=== PATIENT | male | born 1955 | race American Indian/Alaskan Native ===

== ENCOUNTER 2017-01-01 15:34 | Outpatient (CLI) | payer OTHER ==
--- NOTE | 2017-01-01 16:19 | XRay Report ---
CHEST TWO VIEWS: 01/01/17 15:34:00 CLINICAL: Hypertension. COMPARISON: None FINDINGS: Normal heart and pulmonary vasculature. The lungs are normally expanded and clear. The peripheral lung zones are hyperlucent.Degenerative change in the spine. IMPRESSION: Mild COPD and otherwise negative.
== END 2017-01-01 15:35 | disposition home or self-care (01) ==
LOC: XRAY 15:34
PROVIDERS: ATTEND Internal Medicine
DX: Z02.71 Encounter for disability determination (principal); I10 Essential (primary) hypertension; J44.9 Chronic obstructive pulmonary disease, unspecified
CPT/HCPCS: 71020

== ENCOUNTER 2017-02-10 09:14 | Outpatient (CLI) | payer OTHER ==
[2017-02-10] MEDS ORDERED: PROVENTIL IH ONE (09:34)
[2017-02-10] MEDS ORDERED: MORPHINE ONE (20:52)
== END 2017-02-10 09:15 | disposition home or self-care (01) ==
LOC: PF 09:14
PROVIDERS: ATTEND Internal Medicine
DX: I10 Essential (primary) hypertension (principal); R06.02 Shortness of breath; K63.9 Disease of intestine, unspecified
CPT/HCPCS: 94060; 94640; J2270

== ENCOUNTER 2017-03-05 09:03 | Outpatient (CLI) | payer OTHER ==
--- NOTE | 2017-03-05 11:21 | XRay Report ---
BILATERAL KNEES, 2 VIEWS History: Bilateral knee pain. Findings: Normal bone mineralization. No acute osseous findings or joint pathology is identified. Mild vascular calcifications are noted. Impression: Unremarkable bilateral knees.
--- NOTE | 2017-03-05 11:22 | XRay Report ---
LUMBOSACRAL SPINE, 3 VIEWS: History: Back pain Findings: The vertebral bodies, disk spaces and posterior elements are intact. No compression deformity or malalignment. Mild multilevel degenerative disc disease and facet arthropathy are noted. The SI joints are symmetric and unremarkable. Impression: Mild multilevel lumbar spondylosis. No acute process.
== END 2017-03-05 09:04 | disposition home or self-care (01) ==
LOC: XRAY 09:03
PROVIDERS: ATTEND Internal Medicine
DX: M51.37 Other intervertebral disc degeneration, lumbosacral region (principal); M12.88 Other specific arthropathies, not elsewhere classified, other specified site; M47.896 Other spondylosis, lumbar region; M25.862 Other specified joint disorders, left knee; M25.861 Other specified joint disorders, right knee; I10 Essential (primary) hypertension; K63.9 Disease of intestine, unspecified; R06.02 Shortness of breath
CPT/HCPCS: 72100

== ENCOUNTER 2019-01-18 10:04 | Emergency (ER) | payer OTHER ==
[2019-01-18 10:33] VITALS: BP 176/107
[2019-01-18] MEDS ORDERED: ZITHROMAX PO ONE (12:32)
[2019-01-18] MEDS ORDERED: FLAGYL PO ONE (12:32)
[2019-01-18] MEDS ORDERED: ZOFRAN ODT PO ONE (12:32)
[2019-01-18] MEDS ORDERED: XYLOCAINE 1% MPF 5 mL INFILTRATI ONE (12:32)
[2019-01-18] MEDS ORDERED: ROCEPHIN IM ONE (12:32)
--- NOTE | 2019-01-18 12:32 | Emergency Department Report ---
ED Male HPI - General Chief complaint: Urogenital-Male Stated complaint: STD CHECK/DRIP Time Seen by Provider: 01/18/19 12:30 Source: patient Mode of arrival: Ambulatory Limitations: No Limitations - History of Present Illness Initial comments: Mr. Kyle presents with penile discharge for one day. No fever. No pain. Gradual onset. MD Complaint: penile discharge -: Gradual, days(s) (1) Severity: mild Consistency: constant Improves with: none Worsens with: none denies other symptoms - Related Data Previous Rx's Medication Instructions Recorded Last Taken Type Metoclopramide [Reglan] 10 mg PO QID PRN #15 tab 11/13/15 Unknown Rx levoFLOXacin [Levaquin] 750 mg PO QDAY #6 tablet 11/13/15 Unknown Rx oxyCODONE [Roxicodone] 5 mg PO Q6HR PRN #10 tablet 11/13/15 Unknown Rx Allergies Allergy/AdvReac Type Severity Reaction Status Date / Time aspirin AdvReac Intermediate Nausea Verified 03/16/13 08:26 ED Review of Systems ROS: Stated complaint: STD CHECK/DRIP Other details as noted in HPI Constitutional: denies: fever, malaise Gastrointestinal: denies: abdominal pain, nausea, vomiting Genitourinary: discharge. denies: urgency, dysuria, frequency ED Past Medical Hx - Past Medical History Hx Hypertension: Yes - Surgical History Additional Surgical History: colon resection - Social History Smoking Status: Never Smoker Substance Use Type: None - Medications Home Medications: Home Medications Medication Instructions Recorded Confirmed Last Taken Type Metoclopramide [Reglan] 10 mg PO QID PRN #15 tab 11/13/15 Unknown Rx levoFLOXacin [Levaquin] 750 mg PO QDAY #6 tablet 11/13/15 Unknown Rx oxyCODONE [Roxicodone] 5 mg PO Q6HR PRN #10 tablet 11/13/15 Unknown Rx ED Physical Exam - General Limitations: No Limitations General appearance: alert, in no apparent distress - Head Head exam: Present: atraumatic, normocephalic - Eye Eye exam: Present: normal appearance - ENT ENT exam: Present: mucous membranes moist - Neck Neck exam: Present: normal inspection, full ROM - Neurological Exam Neurological exam: Present: alert, oriented X3 - Psychiatric Psychiatric exam: Present: normal affect, normal mood - Skin Skin exam: Present: warm, dry, intact, normal color ED Course Vital Signs 01/18/19 10:31 Temperature 97.6 F Pulse Rate 69 Respiratory 20 Rate Blood Pressure 176/107 O2 Sat by Pulse 100 Oximetry ED Medical Decision Making - Medical Decision Making Mr. Kyle presents with symptoms of urethritis. Treated for chlamydia and gonorrhea Trichomonas with ceftriaxone and azithromycin and metronidazole. Critical care attestation.: If time is entered above; I have spent that time in minutes in the direct care of this critically ill patient, excluding procedure time. ED Disposition Clinical Impression: Urethritis Disposition: DC-01 TO HOME OR SELFCARE Is pt being admited?: No Does the pt Need Aspirin: No Condition: Stable Instructions: Nonspecific Urethritis in Men (ED) Referrals: CATHERINE RAINEY MD [Primary Care Provider] - 3-5 Days Forms: STI Treatment and Prevention
== END 2019-01-18 12:56 | disposition home or self-care (01) ==
LOC: ED 10:04
DX: N34.2 Other urethritis (principal); I10 Essential (primary) hypertension; Z98.890 Other specified postprocedural states; Z79.899 Other long term (current) drug therapy; Z88.6 Allergy status to analgesic agent
CPT/HCPCS: 96372; 99282; J0696; Q0162

== ENCOUNTER 2019-01-21 11:02 | Emergency (ER) | payer BC ==
--- NOTE | 2019-01-21 11:31 | Event Note ---
ED Screening Note ED Screening Note: pt states last he is having rectal bleeding generalized abd discomfort that began last night hx colon CA, had surgical resection in 2006 has not had a colonoscopy since 2007 +nausea no vomiting This initial assessment/diagnostic orders/clinical plan/treatment(s) is/are subject to change based on patients health status, clinical progression and re- assessment by fellow clinical providers in the ED. Further treatment and workup at subsequent clinical providers discretion. Patient/guardian urged not to elope from the ED as their condition may be serious if not clinically assessed and managed. Initial orders include: labs
[2019-01-21 12:05] LABS: Basophils # (Auto) 0.1 K/mm3 (0.0-0.1); Basophils % (Auto) 1.4 % (0.0-1.8); Eosinophils # (Auto) 0.2 K/mm3 (0.0-0.4); Eosinophils % (Auto) 4.4 % (0.0-4.3); Hematocrit 42.6 % (35.5-45.6); Hemoglobin 14.9 gm/dl (11.8-15.2); Lymphocytes # (Auto) 1.4 K/mm3 (1.2-5.4); Mean Corpuscular HGB Conc 35 % (32-34); Mean Corpuscular Volume 86 fl (84-94); Monocytes # (Auto) 0.4 K/mm3 (0.0-0.8); Monocytes % (Auto) 8.9 % (0.0-7.3); Platelet Count 218 K/mm3 (140-440); Red Blood Count 4.98 M/mm3 (3.65-5.03); Red Cell Distribution Width 14.4 % (13.2-15.2)
[2019-01-21 12:20] LABS: Alanine Aminotransferase 14 units/L (7-56); Albumin 3.7 g/dL (3.9-5); BUN/Creatinine Ratio 18; Blood Urea Nitrogen 18 mg/dL (9-20); Calcium 9.1 mg/dL (8.4-10.2); Hemolysis Index 7; INR 1.12 (0.87-1.13)
[2019-01-21 12:21] LABS: Partial Thromboplastin Time 22.6 Sec. (24.2-36.6)
--- NOTE | 2019-01-21 12:28 | Emergency Department Report ---
ED GI Bleed HPI - General Chief complaint: GI Bleed Stated complaint: BLOOD IN STOOL/LIGHTHEADED Time Seen by Provider: 01/21/19 11:29 Source: patient Mode of arrival: Ambulatory Limitations: No Limitations - History of Present Illness Initial comments: Patient is 63 years old male with history of colon cancer in 2006 status post resection at [facility]. Patient presented to the ER complaining of rectal bleeding, bloody streaked stools started last night. Patient stated that he had 2 episodes so far. Patient is also complaining of diffuse abdominal pain, crampy in nature. Patient denied any nausea or vomiting. Patient stated that he lost approximately 10 pounds since last week. Patient did not have any follow-up with his GI doctor for colonoscopy except one time in 2007. MD complaint: blood streaked stool -: Last night Location: diffuse Radiation: none Quality: cramping Context: history of GI bleed - Related Data Previous Rx's Medication Instructions Recorded Last Taken Type Metoclopramide [Reglan] 10 mg PO QID PRN #15 tab 11/13/15 Unknown Rx levoFLOXacin [Levaquin] 750 mg PO QDAY #6 tablet 11/13/15 Unknown Rx oxyCODONE [Roxicodone] 5 mg PO Q6HR PRN #10 tablet 11/13/15 Unknown Rx Allergies Allergy/AdvReac Type Severity Reaction Status Date / Time aspirin AdvReac Intermediate Nausea Verified 01/21/19 11:15 ED Review of Systems ROS: Stated complaint: BLOOD IN STOOL/LIGHTHEADED Other details as noted in HPI Comment: All other systems reviewed and negative Constitutional: denies: chills, fever Respiratory: denies: cough Cardiovascular: denies: chest pain, palpitations Gastrointestinal: abdominal pain, hematochezia. denies: nausea, vomiting, diarrhea, constipation, hematemesis, melena Genitourinary: denies: urgency, dysuria, hematuria Neurological: denies: headache ED Past Medical Hx - Past Medical History Hx Hypertension: Yes Hx of Cancer: Yes (COLON) - Surgical History Additional Surgical History: colon resection - Social History Smoking Status: Never Smoker Substance Use Type: None - Medications Home Medications: Home Medications Medication Instructions Recorded Confirmed Last Taken Type Metoclopramide [Reglan] 10 mg PO QID PRN #15 tab 11/13/15 Unknown Rx levoFLOXacin [Levaquin] 750 mg PO QDAY #6 tablet 11/13/15 Unknown Rx oxyCODONE [Roxicodone] 5 mg PO Q6HR PRN #10 tablet 11/13/15 Unknown Rx ED Physical Exam - General Limitations: No Limitations General appearance: alert, in no apparent distress - Head Head exam: Present: atraumatic, normocephalic, normal inspection - Eye Eye exam: Present: normal appearance, PERRL - ENT ENT exam: Present: normal exam, normal orophraynx, mucous membranes moist - Neck Neck exam: Present: normal inspection, full ROM. Absent: tenderness, meningismus, lymphadenopathy, thyromegaly - Respiratory Respiratory exam: Present: normal lung sounds bilaterally - Cardiovascular Cardiovascular Exam: Present: regular rate, normal rhythm, normal heart sounds - GI/Abdominal GI/Abdominal exam: Present: soft, normal bowel sounds. Absent: distended, tenderness, guarding, rebound, rigid, organomegaly, mass, bruit, pulsatile mass, hernia - Rectal Rectal exam: Present: normal inspection, normal rectal tone, heme (-) stool. Absent: fecal impaction, hemorrhoids, mass, tenderness - Extremities Exam Extremities exam: Present: normal inspection, full ROM, normal capillary refill. Absent: tenderness, pedal edema, joint swelling, calf tenderness - Back Exam Back exam: Present: normal inspection, full ROM. Absent: CVA tenderness (R), CVA tenderness (L), muscle spasm, paraspinal tenderness, vertebral tenderness - Neurological Exam Neurological exam: Present: alert, oriented X3, CN II-XII intact, normal gait, reflexes normal - Psychiatric Psychiatric exam: Present: normal mood - Skin Skin exam: Present: warm, intact, normal color ED Course Vital Signs 01/21/19 01/21/19 01/21/19 11:29 12:00 12:26 Temperature 97.8 F 98.4 F Pulse Rate 77 78 Respiratory 16 17 17 Rate Blood Pressure Blood Pressure 190/99 151/113 [Left] O2 Sat by Pulse 100 98 98 Oximetry 01/21/19 01/21/19 12:31 14:04 Temperature Pulse Rate 74 64 Respiratory 14 14 Rate Blood Pressure 159/96 Blood Pressure 166/88 [Left] O2 Sat by Pulse 100 99 Oximetry ED Medical Decision Making - Lab Data Result diagrams: 01/21/19 11:53 01/21/19 11:53 - Radiology Data Radiology results: report reviewed - Medical Decision Making Patient is 63 years old male with history of colon cancer in 2006 status post resection at [facility]. Patient presented to the ER complaining of rectal bleeding, bloody streaked stools started last night. Patient stated that he had 2 episodes so far. Patient is also complaining of diffuse abdominal pain, crampy in nature. Patient denied any nausea or vomiting. Patient stated that he lost approximately 10 pounds since last week. Patient did not have any follow-up with his GI doctor for colonoscopy except one time in 2007. Patient labs reviewed and is unremarkable with a hemoglobin of 15.9. CT abdomen and pelvis is negative for acute finding. Patient did not experience any more rectal bleeding in the ER. Vital signs stable. I strongly advised the patient to follow-up with gastroenterology for colonoscopy. Patient given [place] [facility]-for follow-up in the next 2-3 days. Patient also advised to return to the ER if started developing more symptoms. Critical care attestation.: If time is entered above; I have spent that time in minutes in the direct care of this critically ill patient, excluding procedure time. ED Disposition Clinical Impression: GI bleeding, Abdominal pain Disposition: DC-01 TO HOME OR SELFCARE Is pt being admited?: No Condition: Stable Instructions: Abdominal Pain (ED), Rectal Bleeding (ED) Referrals: PRIMARY CARE [Primary Care Provider] - 3-5 Days [facility] [Provider Group] - 3-5 Days Forms: Accompanied Note
--- NOTE | 2019-01-21 14:24 | Cat Scan Report ---
CT ABDOMEN AND PELVIS WITH CONTRAST HISTORY: Abdominal pain, loss of appetite, blood in stool, history of colon cancer COMPARISON: 11/13/2015 TECHNIQUE: Axial CT images were obtained through the abdomen and pelvis after 100 cc of Omnipaque 300 intravenously. Sagittal and coronal reformatted images. All CT scans at this location are performed using CT dose reduction for ALARA by means of automated exposure control. FINDINGS: CT ABDOMEN: Lung Bases: Clear. Liver: Multiple hepatic cysts appear unchanged in size and number. No suspicious liver mass has devel oped. Biliary: No significant abnormality. Spleen: No significant abnormality. Unenlarged. Pancreas: No significant abnormality. Adrenals: No significant abnormality. Kidneys: Scattered bilateral simple renal cysts appear unchanged in size and number. There also appea r to be 2 or 3 punctate calyceal stones in each kidney. The ureters are normal course and caliber. Lymphatics: No lymphadenopathy. Vasculature: No significant abnormality. Bowel/Peritoneum: Surgical suture line is noted in the distal colon. The bowel loops are normal calib er and wall thickness. No evidence for obstruction or focal inflammation. No obvious mass with no ora l contrast. Normal appendix. CT PELVIS: : The bladder is unremarkable. The prostate gland is moderately enlarged measuring 5.7 cm in diamet er. Osseous Structures: Mild thoracolumbar spondylosis. No fracture or suspicious bony lesion. Additional Findings: None IMPRESSION: No acute process is identified in the abdomen or pelvis. No evidence for disease recurrence or metastasis. Liver and renal cysts, stable. Punctate bilateral renal stones, nonobstructing. Signer Name: Omar Prieto Jr, MD Signed: 01/21/2019 2:19 PM Workstation Name: [id number]
[2019-01-21 15:14] VITALS: BP 159/102
== END 2019-01-21 15:14 | disposition home or self-care (01) ==
LOC: ED 11:02
DX: K92.2 Gastrointestinal hemorrhage, unspecified (principal); I10 Essential (primary) hypertension; Z79.899 Other long term (current) drug therapy; Z88.6 Allergy status to analgesic agent
CPT/HCPCS: 36415; 74177; 80053; 83690; 85025; 85610; 85730; 99284; Q9967

== ENCOUNTER 2019-11-29 10:53 | Emergency (ER) | payer MEDICARE, OTHER ==
--- NOTE | 2019-11-29 13:18 | Event Note ---
ED Screening Note Date of service: 11/29/19 Time: 13:18 ED Screening Note: Patient complains of mid/upper abdominal pain for the past month He has a history of colon cancer-2006 Patient also admits to nausea and vomiting and bilateral arm tingling This initial assessment/diagnostic orders/clinical plan/treatment(s) is/are subject to change based on patients health status, clinical progression and re- assessment by fellow clinical providers in the ED. Further treatment and workup at subsequent clinical providers discretion. Patient/guardian urged not to elope from the ED as their condition may be serious if not clinically assessed and managed. Initial orders include: labs CT
[2019-11-29 14:34] LABS: Basophils # (Auto) 0.1 K/mm3 (0.0-0.1); Basophils % (Auto) 1.2 % (0.0-1.8); Eosinophils # (Auto) 0.1 K/mm3 (0.0-0.4); Hematocrit 44.9 % (35.5-45.6); Hemoglobin 15.7 gm/dl (11.8-15.2); Lymphocytes # (Auto) 1.6 K/mm3 (1.2-5.4); Lymphocytes % (Auto) 34.3 % (13.4-35.0); Mean Corpuscular HGB Conc 35 % (32-34); Mean Corpuscular Volume 89 fl (84-94); Monocytes # (Auto) 0.3 K/mm3 (0.0-0.8); Monocytes % (Auto) 6.5 % (0.0-7.3); Platelet Count 190 K/mm3 (140-440); Red Blood Count 5.02 M/mm3 (3.65-5.03); Red Cell Distribution Width 14.2 % (13.2-15.2)
[2019-11-29 15:13] LABS: Alanine Aminotransferase 15 units/L (7-56); Albumin 4.2 g/dL (3.9-5); BUN/Creatinine Ratio 17; Blood Urea Nitrogen 15 mg/dL (9-20); Calcium 9.7 mg/dL (8.4-10.2)
[2019-11-29] MEDS ORDERED: cloNIDine 0.2 MG TAB PO ONE (21:19)
[2019-11-29] MEDS ORDERED: ONDANSETRON 4 MG/2 ML INJ IV ONE (21:23)
[2019-11-29 21:49] LABS: Bacteria,Urine 1+ /HPF (Negative); Bilirubin,Urine NEG (Negative); Blood,Urine SM (Negative); Color,Urine Straw (Yellow); Protein,Urine <15 mg/dL mg/dL (Negative); Urobilinogen,Urine < 2.0 mg/dL (<2.0)
[2019-11-29 22:04] VITALS: BP 142/67
--- NOTE | 2019-11-29 23:22 | Cat Scan Report ---
CT ABDOMEN AND PELVIS WITH CONTRAST INDICATION: Mid-Upper abdominal pain, Hx of colon cancer in 2007 with history of a resection CONTRAST: 100 cc Omnipaque 300 IV COMPARISON: 01/21/[address] scans at this location are performed using CT dose reduction for ALARA by means of automated e xposure control. FINDINGS: An area of sclerosis in the right iliac wing and another more inferiorly in the left iliac bone are stable. Lung bases are clear of infiltrates, nodules, or masses. No pneumoperitoneum is seen. No significant abdominal wall herniation is noted. Multiple hepatic cysts of varying sizes are again seen with patte rn not changed from prior study. No definite new lesions or suspicious lesions are seen. Liver shows mild fatty infiltration but is not significantly enlarged. Spleen, adrenals, pancreas, bile ducts, an d gallbladder show no abnormalities. Bilateral renal cysts and probable cysts are unchanged. A comple x lesion in the lower pole the left kidney which is not clearly a simple cyst and has an internal den sity measuring 65 Hounsfield units has increased in size from approximately 13 mm to 19 mm. No urinar y obstructive changes are seen. No lymphadenopathy is noted. No free fluid is seen. No evidence of bowel obstruction is seen. Appendix appears within normal limits. No obvious bowel les ions are seen. Sigmoid surgical changes are again noted. No focal inflammatory changes are seen. Prostate is moderately enlarged without change. Vesicles are symmetric. IMPRESSION: 1. No acute abnormalities are seen 2. No significant evidence of metastatic disease 3. Mild increase in size of an indeterminate left renal lesion. This could be a significant neoplasti c lesion and close follow-up is suggested. Multiphase CT may be useful to determine if this is an enh ancing lesion. Signer Name: Jose Feliciano MD Signed: 11/29/2019 11:18 PM Workstation Name: [id number]
--- NOTE | 2019-11-30 01:13 | Emergency Department Report ---
HPI - General Chief Complaint: Nausea/Vomiting/Diarrhea Time Seen by Provider: 11/29/19 12:48 - HPI HPI: Room 5 The patient is a 64-year-old male present with a chief complaint of nausea. The patient states he has had nausea for 2 weeks. Patient denies vomiting or diarrhea. Patient denies abdominal pain. Patient denies fever dysuria or hematuria. The patient states for the last 2 to 3 weeks he has had intermittent left lower quadrant pain. But not currently ED Past Medical Hx - Past Medical History Previous Medical History?: Yes Hx Hypertension: Yes Additional medical history: colon cancer - Surgical History Past Surgical History?: Yes Additional Surgical History: colon resection - Family History Family history: no significant - Social History Smoking Status: Unknown if ever smoked Substance Use Type: None - Medications Home Medications: Home Medications Medication Instructions Recorded Confirmed Last Taken Type Metoclopramide [Reglan] 10 mg PO QID PRN #15 tab 11/13/15 Unknown Rx levoFLOXacin [Levaquin] 750 mg PO QDAY #6 tablet 11/13/15 Unknown Rx oxyCODONE [Roxicodone] 5 mg PO Q6HR PRN #10 tablet 11/13/15 Unknown Rx Ondansetron [Zofran ODT TAB] 8 mg PO Q8HR #20 tab.rapdis 11/30/19 Unknown Rx Sulfamethoxazole/Trimethoprim 1 each PO BID #14 tablet 11/30/19 Unknown Rx [Bactrim DS TAB] traMADoL [Ultram] 50 mg PO Q6HR PRN #10 tablet 11/30/19 Unknown Rx ED Review of Systems ROS: Stated complaint: ARM PAIN Other details as noted in HPI Constitutional: denies: fever Respiratory: no symptoms reported Endocrine: no symptoms reported Gastrointestinal: abdominal pain, nausea. denies: vomiting, diarrhea Genitourinary: denies: dysuria, hematuria Musculoskeletal: denies: back pain Physical Exam - Physical Exam Vital Signs: Vital Signs 11/29/19 11/29/19 11/29/19 13:16 17:13 21:25 Temperature 97.9 F Pulse Rate 84 66 64 Respiratory 20 18 Rate Blood Pressure 201/108 187/100 Blood Pressure 214/108 [Right] O2 Sat by Pulse 100 98 Oximetry 11/29/19 22:04 Temperature Pulse Rate Respiratory Rate Blood Pressure Blood Pressure 142/67 [Right] O2 Sat by Pulse Oximetry Physical Exam: GENERAL: The patient is well-developed well-nourished male lying on stretcher not appearing to be in acute distress. [] HEENT: Normocephalic. Atraumatic. Extraocular motions are intact. Patient has moist mucous membranes. NECK: Supple. Trachea midline CHEST/LUNGS: Clear to auscultation. There is no respiratory distress noted. HEART/CARDIOVASCULAR: Regular. There is no tachycardia. There is no gallop rub or murmur. ABDOMEN: Abdomen is soft, nontender. Patient has normal bowel sounds. There is no abdominal distention. SKIN: There is no rash. There is no edema. There is no diaphoresis. NEURO: The patient is awake, alert, and oriented. The patient is cooperative. The patient has normal speech and gait. MUSCULOSKELETAL: There is no CVA tenderness. There is no evidence of acute injury. ED Course Vital Signs 11/29/19 11/29/19 11/29/19 13:16 17:13 21:25 Temperature 97.9 F Pulse Rate 84 66 64 Respiratory 20 18 Rate Blood Pressure 201/108 187/100 Blood Pressure 214/108 [Right] O2 Sat by Pulse 100 98 Oximetry 11/29/19 22:04 Temperature Pulse Rate Respiratory Rate Blood Pressure Blood Pressure 142/67 [Right] O2 Sat by Pulse Oximetry ED Medical Decision Making - Lab Data Result diagrams: 11/29/19 14:25 11/29/19 14:25 Laboratory Tests 11/29/19 11/29/19 11/29/19 14:25 14:25 21:37 WBC 4.8 RBC 5.02 Hgb 15.7 H Hct 44.9 MCV 89 MCH 31 MCHC 35 H RDW 14.2 Plt Count 190 Lymph % (Auto) 34.3 [place]ney % (Auto) 6.5 Eos % (Auto) 2.0 Baso % (Auto) 1.2 Lymph # 1.6 Kinney # 0.3 Eos # 0.1 Baso # 0.1 Seg Neutrophils % 56.0 Seg Neutrophils # 2.7 Sodium 139 Potassium 4.3 Chloride 104.8 Carbon Dioxide 26 Anion Gap 13 BUN 15 Creatinine 0.9 Estimated GFR > 60 BUN/Creatinine Ratio 17 Glucose 102 H Calcium 9.7 Total Bilirubin 0.60 AST 18 ALT 15 Alkaline Phosphatase 83 Troponin T < 0.010 Total Protein 7.5 Albumin 4.2 Albumin/Globulin Ratio 1.3 Lipase 19 Urine Color Straw Urine Turbidity Clear Urine pH 6.0 Ur Specific [place] 1.011 Urine Protein <15 mg/dl Urine Glucose (UA) Neg Urine Ketones Neg Urine Blood Sm Urine Nitrite Neg Urine Bilirubin Neg Urine Urobilinogen < 2.0 Ur Leukocyte Esterase Sm Urine WBC (Auto) 4.0 Urine RBC (Auto) 1.0 Urine Bacteria (Auto) 1+ - Radiology Data Radiology results: report reviewed (CT abdomen pelvis), image reviewed (CT abdomen pelvis) [facility] [address] [place] [address] Cat Scan Report Signed Patient: TIFFANIE GAMEZ MR#: [id number] : 1955 Acct:[id number] Age/Sex: 64 / M ADM Date: 11/29/19 Loc: ED Attending Dr: Ordering Physician: LINNETTE SAXENA Date of Service: 11/29/19 Procedure(s): CT a bdomen pelvis w con Accession Number(s): [id number] cc: LINNETTE SAXENA CT ABDOMEN AND PELVIS WITH CONTRAST INDICATION: Mid-Upper abdominal pain, Hx of colon cancer in 2006 with history of a resection CONTRAST: 100 cc Omnipaque 300 IV COMPARISON: 01/21/[address] scans at this location are performed using CT dose reduction for ALARA by means of automated exposure control. FINDINGS: An area of sclerosis in the right iliac wing and another more inferiorly in the left iliac bone are stable. Lung bases are clear of infiltrates, nodules, or masses. No pneumoperitoneum is seen. No significant abdominal wall herniation is noted. Multiple hepatic cysts of varying sizes are again seen with pattern not changed from prior study. No definite new lesions or suspicious lesions are seen. Liver shows mild fatty infiltration but is not significantly enlarged. Spleen, adrenals, pancreas, bile ducts, and gallbladder show no abnormalities. Bilateral renal cysts and probable cysts are unchanged. A complex lesion in the lower pole the left kidney which is not clearly a simple cyst and has an internal density measuring 65 Hounsfield units has increased in size from approximately 13 mm to 19 mm. No urinary obstructive changes are seen. No lymphadenopathy is noted. No free fluid is seen. No evidence of bowel obstruction is seen. Appendix appears within normal limits. No obvious bowel lesions are seen. Sigmoid surgical changes are again noted. No focal inflammatory changes are seen. Prostate is moderately enlarged without change. Vesicles are symmetric. IMPRESSION: 1. No acute abnormalities are seen 2. No significant evidence of metastatic disease 3. Mild increase in size of an indeterminate left renal lesion. This could be a significant neoplastic lesion and close follow-up is suggested. Multiphase CT may be useful to determine if this is an enhancing lesion. Signer Name: Jose Feliciano MD Signed: 11/29/2019 11:18 PM Workstation Name: [id number] Transcribed By: GJ Dictated By: Jose Feliciano MD Electronically Authenticated By: Jose Feliciano MD Signed Date/Time: 11/29/192317 DD/ 05 TD/TT: - Differential Diagnosis Renal colic, pyelonephritis, UTI, diverticulitis Critical care attestation.: If time is entered above; I have spent that time in minutes in the direct care of this critically ill patient, excluding procedure time. ED Disposition Clinical Impression: Nausea, Bacteriuria Disposition: - TO HOME OR SELFCARE Is pt being admited?: No Does the pt Need Aspirin: No Condition: Stable Instructions: Acute Nausea and Vomiting (ED) Additional Instructions: Return to the emergency department should you develop worsening symptoms, inability to tolerate food or liquids, high fever or any other concerns Prescriptions: Sulfamethoxazole/Trimethoprim [Bactrim DS TAB] 1 each PO BID #14 tablet traMADoL [Ultram] 50 mg PO Q6HR PRN #10 tablet PRN Reason: Pain Ondansetron [Zofran ODT TAB] 8 mg PO Q8HR #20 tab.rapdis Referrals: PRIMARY CAREMD [Primary Care Provider] - 3-5 Days BIANKA PINEDA MD [Staff Physician] - 3-5 Days (Dr. Pineda is a urologist. Please follow-up with him for further evaluation) Time of Disposition: 01:13
== END 2019-11-30 01:23 | disposition home or self-care (01) ==
LOC: ED 10:53
DX: R82.71 Bacteriuria (principal); I10 Essential (primary) hypertension; Z85.038 Personal history of other malignant neoplasm of large intestine; Z79.899 Other long term (current) drug therapy; Z88.6 Allergy status to analgesic agent
CPT/HCPCS: 36415; 74177; 80053; 81001; 83690; 84484; 85025; 93005; 96374; 99284; J2405; Q9967

== ENCOUNTER 2020-03-08 11:10 | Outpatient (CLI) | payer BC, MEDICARE ==
--- NOTE | 2020-03-08 12:30 | XRay Report ---
RIGHT HIP 2 VIEWS INDICATION: PAIN IN RIGHT HIP. COMPARISON: None. IMPRESSION: No acute osseous or soft tissue abnormality. No significant DJD. No evidence for oste onecrosis. Signer Name: Omar Prieto Jr, MD Signed: 03/08/2020 12:26 PM Workstation Name: [id number]
== END 2020-03-08 11:11 | disposition home or self-care (01) ==
LOC: XRAY 11:10
PROVIDERS: ATTEND Internal Medicine
DX: M25.551 Pain in right hip (principal)

== ENCOUNTER 2021-04-20 09:00 | Outpatient (CLI) | payer BC, MEDICARE ==
[2021-04-20 09:36] LABS: Basophils % (Auto) 1.4 % (0.0-1.8); Eosinophils # (Auto) 0.1 K/mm3 (0.0-0.4); Eosinophils % (Auto) 3.1 % (0.0-4.3); Hematocrit 38.5 % (35.5-45.6); Hemoglobin 12.9 gm/dl (11.8-15.2); Lymphocytes # (Auto) 0.8 K/mm3 (1.2-5.4); Lymphocytes % (Auto) 22.6 % (13.4-35.0); Mean Corpuscular HGB Conc 33 % (32-34); Mean Corpuscular Volume 89 fl (84-94); Monocytes # (Auto) 0.3 K/mm3 (0.0-0.8); Monocytes % (Auto) 7.5 % (0.0-7.3); Platelet Count 203 K/mm3 (140-440); Red Blood Count 4.35 M/mm3 (3.65-5.03); Red Cell Distribution Width 14.5 % (13.2-15.2)
[2021-04-20 10:07] LABS: Alanine Aminotransferase 78 units/L (7-56); BUN/Creatinine Ratio 25; Blood Urea Nitrogen 20 mg/dL (9-20); Calcium 9.5 mg/dL (8.4-10.2); Hemolysis Index 2
== END 2021-04-20 09:01 | disposition home or self-care (01) ==
LOC: LAB 09:00
PROVIDERS: ATTEND Internal Medicine
DX: R10.9 Unspecified abdominal pain (principal); R73.03 Prediabetes; R55 Syncope and collapse
CPT/HCPCS: 36415; 80053; 83036; 85025

== ENCOUNTER 2021-08-08 09:19 | Outpatient (CLI) | payer BC, MEDICARE ==
[2021-08-08 10:12] LABS: Alanine Aminotransferase 11 units/L (7-56)
[2021-08-08 10:15] LABS: Bilirubin,Direct < 0.2 mg/dL (0-0.2)
[2021-08-08 13:16] LABS: Hepatitis B Surface Antigen Non-Reactive (Negative); Hepatitis C Virus Antibody Non-Reactive (NonReactive)
== END 2021-08-08 09:20 | disposition home or self-care (01) ==
LOC: LAB 09:19
PROVIDERS: ATTEND Internal Medicine
DX: Q44.6 Cystic disease of liver (principal); R10.9 Unspecified abdominal pain
CPT/HCPCS: 36415; 80074; 80076

== ENCOUNTER 2021-11-20 10:54 | Outpatient (CLI) | payer MEDICARE ==
[2021-11-20 11:58] LABS: Basophils # (Auto) 0.1 K/mm3 (0.0-0.1); Basophils % (Auto) 1.3 % (0.0-1.8); Eosinophils # (Auto) 0.2 K/mm3 (0.0-0.4); Eosinophils % (Auto) 3.1 % (0.0-4.3); Hemoglobin 13.4 gm/dl (11.8-15.2); Lymphocytes # (Auto) 0.9 K/mm3 (1.2-5.4); Lymphocytes % (Auto) 19.1 % (13.4-35.0); Mean Corpuscular HGB Conc 33 % (32-34); Mean Corpuscular Volume 87 fl (84-94); Monocytes # (Auto) 0.4 K/mm3 (0.0-0.8); Platelet Count 212 K/mm3 (140-440); Red Blood Count 4.59 M/mm3 (3.65-5.03)
[2021-11-20 12:23] LABS: Alanine Aminotransferase 14 units/L (7-56); Albumin 4.3 g/dL (3.9-5); BUN/Creatinine Ratio 20; Blood Urea Nitrogen 18 mg/dL (9-20); Calcium 9.7 mg/dL (8.4-10.2); Chol/HDL Ratio 2.48 %; HDL Cholesterol 64 mg/dL (40-59); Hemolysis Index 12; LDL Cholesterol,Direct 83 mg/dL (50-130)
== END 2021-11-20 10:55 | disposition home or self-care (01) ==
LOC: LABHHL 10:54
PROVIDERS: ATTEND Internal Medicine
DX: I10 Essential (primary) hypertension (principal); R73.03 Prediabetes; N28.1 Cyst of kidney, acquired; E55.9 Vitamin D deficiency, unspecified; R42 Dizziness and giddiness; R53.83 Other fatigue
CPT/HCPCS: 36415; 80053; 80061; 82306; 83036; 84443; 85025